=== PATIENT | female | born 1990 | race Caucasian/White ===

== ENCOUNTER 2016-05-29 09:20 | Emergency (ER) | payer MEDICAID ==
--- NOTE | 2016-06-06 10:17 | ER ---
ADMIT: 05/29/2016 RM/LOC: ER [facility] MR#: [id number] [facility] [address] [place], [place] [id number] JOSE F GALDAMEZ [address] [place] [id number] Emergency Room Report SEX: F AGE: 25 : 1990 DATE: 05/29/2016 ADDENDUM: CHIEF COMPLAINT: Abdominal pain. HISTORY OF PRESENT ILLNESS: This is a 25-year-old who says she really has been staying away from fatty foods. This morning, she ate a doughnut around 5 a.m. and ended up having extreme pain afterwards. She thought it was just indigestion, so she tried to just drink some Sprite or Leticia pepe. She really could not get rid of the pain, so she came to the ER. She states that this feels very much like her pain before having her gallbladder removed. Nothing has made it better, nothing has made it worse. CBC, CMP, lipase, urine, urine preg test is done, everything was negative. At that time, I did ultrasound of the abdomen and they were not able to see any abnormal findings. Since she has completely normal labs, I told her I am going to send her home. I will have her push fluids, do a non-fat diet still, and follow up with the general surgeon or a acting manager in the near future. CLINICAL IMPRESSION: Epigastric abdominal pain. VICK Barrios / Pedro Howe MD / emiliel JOB #: [id number] CC: Pedro Howe MD, Attending Physician UNKNOWN, Family Physician
== END 2016-05-29 12:50 | disposition home or self-care (01) ==
LOC: ER 09:20
DX: R10.11 Right upper quadrant pain (principal); R10.13 Epigastric pain; Z88.8 Allergy status to other drugs, medicaments and biological substances; Z79.899 Other long term (current) drug therapy